=== PATIENT | male | born 1970 | race Caucasian/White ===

== ENCOUNTER 2017-07-22 16:49 | Inpatient (IN) | payer OTHER ==
[2017-07-22 18:45] VITALS: BMI 24.9
--- NOTE | 2017-07-22 20:25 | HP ---
CIWA Score - CIWA Score Nausea/Vomitin-No Nausea/No Vomiting Muscle Tremors: 4-Moderate,w/Arms Extend Anxiety: 4-Mod. Anxious/Guarded Agitation: 4-Moderately Restless Paroxysmal Sweats: 1-Minimal Palms Moist Orientation: 1-Uncertain about Date Tacttile Disturbances: 0-None Auditory Disturbances: 0-None Visual Disturbances: 0-None Headache: 3-Moderate CIWA-Ar Total Score: 17 Admission ROS S - HPI Chief Complaint: Alcohol withdrawal symptoms Allergies/Adverse Reactions: Allergies Allergy/AdvReac Type Severity Reaction Status Date / Time No Known Allergies Allergy Verified 07/22/17 19:53 History of Present Illness: 46 years old male with a long history of alcohol dependence is admitted to detox. Patient reports previous detox and 2 months of sobriety. Patient has past medical history of TIA, HTN, seizure and denies suicidal ideation at this time. Patient states, " I need help, I want take care of my drinking problem because of my and children." Exam Limitations: No Limitations - Ebola screening Have you traveled outside of the country in the last 21 days: No Have you had contact with anyone from an Ebola affected area: No Have you been sick,other than usual withdrawal symptoms: No Do you have a fever: No - Review of Systems Constitutional: Chills, Malaise, Night Sweats, Changes in sleep EENT: reports: No Symptoms Reported Respiratory: reports: No Symptoms reported GI: reports: Poor Appetite, Poor Fluid Intake, Abdominal cramping : reports: No Symptoms Reported Musculoskeletal: reports: Back Pain, Muscle Pain, Muscle Weakness Integumentary: reports: [place] Neuro: reports: Headache, Tingling, Tremors Endocrine: reports: [place] Hematology: reports: No Symptoms Reported Psychiatric: reports: Anxious, Depressed Other Systems: Reviewed and Negative Patient History - Patient Medical History Hx Anemia: No Hx Asthma: No Hx Chronic Obstructive Pulmonary Disease (COPD): No Hx Cancer: No Hx Cardiac Disorders: Yes (TIA) Hx Congestive Heart Failure: No Hx Hypertension: No Hx Hypercholesterolemia: No Hx Pacemaker: No HX Cerebrovascular Accident: No Hx Seizures: Yes (alcohol related 09/2016) Hx Dementia: No Hx Diabetes: No Hx Gastrointestinal Disorders: No Hx Liver Disease: No Hx Genitourinary Disorders: No Hx Sexually Transmitted Disorders: No Hx Renal Disease (ESRD): No Hx Thyroid Disease: No Hx Human Immunodeficiency Virus (HIV): No (Negative 2015) Hx Hepatitis C: No (Negative 2015) Hx Depression: Yes Hx Suicide Attempt: No (Denies suicidal ideation) Hx Bipolar Disorder: No Hx Schizophrenia: No - Patient Surgical History Past Surgical History: No - PPD History Previous Implant?: Yes Documented Results: Negative w/proof Implanted On Prior [facility] Admission?: Yes Date: 11/28/15 Results: 0 mm PPD to be Administered?: Yes - Reproductive History Patient is a Female of Child Bearing Age (11 -55 yrs old): No (MALE) - Smoking Cessation Smoking history: Never smoked Have you smoked in the past 12 months: No Hx Chewing Tobacco Use: No Initiated information on smoking cessation: No - Substance & Tx. History Hx Alcohol Use: Yes (BEER) Hx Substance Use: No Substance Use Type: Alcohol Hx Substance Use Treatment: Yes ([facility]) - Substances Abused Alcohol Route: Oral Frequency: Daily Amount used: 10 bottles of 12 oz beer Age of first use: 22 Date of Last Use: 07/22/17 Family Disease History - Family Disease History Family History: Denies Admission Physical Exam [facility] - Vital Signs Vital Signs: Vital Signs - 24 hr 07/22/17 18:40 Temperature 98.8 F Pulse Rate 90 Respiratory 18 Rate Blood Pressure 123/87 - Physical General Appearance: Yes: Moderate Distress, Alcohol on Breath, Tremorous, Irritable, Sweating, Anxious HEENTM: Yes: EOMI, TIM Respiratory: Yes: Lungs Clear, Normal Breath Sounds, No Respiratory Distress Neck: Yes: Supple Breast: Yes: Breast Exam Deferred Cardiology: Yes: Regular Rhythm, Regular Rate, S1, S2, Tachycardia Abdominal: Yes: Within Normal Limits Back: Yes: Within Normal Limits Musculoskeletal: Yes: Muscle Pain, Muscle weakness Extremities: Yes: Tremors Neurological: Yes: Alert, Normal Mood/Affect, Normal Response Integumentary: Yes: Dry Lymphatic: Yes: Within Normal Limits - Diagnostic (1) TIA (transient ischemic attack) Current Visit: Yes Status: Chronic (2) Alcohol dependence with uncomplicated withdrawal Current Visit: Yes Status: Chronic (3) Hypertension Current Visit: Yes Status: Chronic Qualifiers: Hypertension type: essential hypertension Qualified Code(s): I10 - Essential (primary) hypertension (4) Alcohol related seizure Current Visit: Yes Status: Chronic Cleared for Admission [facility] - Detox or Rehab [facility] Level of Care: Medically Managed Detox Regimen/Protocol: Librium [facility] Breath Alcohol Content Breath Alcohol Content: 0.240 Urine Drug Screen - Results Drug Screen Negative: Yes
[2017-07-22] MEDS ORDERED: hydrOXYzine PAMOATE 50 MG CAPSULE (FP) PO PRN (20:45)
[2017-07-22] MEDS ORDERED: MAGNESIUM CITRATE 300 ML BOTTLE PO PRN (20:45)
[2017-07-22] MEDS ORDERED: MAGNESIUM HYDROX 2400MG/30ML ORAL SUSPENSION 30 ML CUP PO PRN (20:45)
[2017-07-22] MEDS ORDERED: MENTHOL/PHENOL 1 EACH UD MM PRN (20:45)
[2017-07-22] MEDS ORDERED: P-EPHED 60MG/TRIPROLIDI 2.5MG TABLET PO PRN (20:45)
[2017-07-22] MEDS ORDERED: LOPERAMIDE HCL 2 MG CAPSULE PO PRN (20:45)
[2017-07-22] MEDS ORDERED: IBUPROFEN 400 MG TABLET (FP) PO PRN (20:45)
[2017-07-22] MEDS ORDERED: MAG HYDROX/AL HYDROX/SIMETH 30 ML UNIT-DOSE CUP PO PRN (20:45)
[2017-07-22] MEDS ORDERED: guaiFENesin/D-METHORPHAN HB 10 ML UNIT-DOSE CUPS PO PRN (20:45)
[2017-07-22] MEDS ORDERED: ACETAMINOPHEN 325 MG TABLET (FP) PO PRN (20:45)
[2017-07-22] MEDS ORDERED: chlordiazePOXIDE HCL 25 MG CAPSULE PO PRN (20:45)
[2017-07-22] MEDS: chlordiazePOXIDE HCL 25 MG CAPSULE PO SCH (22:32)
[2017-07-22] MEDS: THIAMINE HCL 100 MG TABLET (FP) PO SCH (22:32)
[2017-07-23 03:50] LABS: URINE APPEARANCE CLEAR; URINE BILIRUBIN NEGATIVE (NEGATIVE); URINE BLOOD NEGATIVE (NEGATIVE); URINE COLOR COLORLESS; URINE GLUCOSE (UA) NEGATIVE (NEGATIVE); URINE KETONE NEGATIVE (NEGATIVE); URINE NITRITE NEGATIVE (NEGATIVE); URINE PROTEIN NEGATIVE (NEGATIVE); URINE UROBILINOGEN NEGATIVE mg/dL (0.2-1.0)
[2017-07-23] MEDS: chlordiazePOXIDE HCL 25 MG CAPSULE PO SCH ×4 (05:26→22:08)
[2017-07-23 09:58] LABS: MCH 32.3 pg (25.7-33.7); MCHC 33.9 g/dl (32.0-35.9); MEAN CELL VOLUME 95.4 fl (80-96); MEAN PLT VOLUME 7.9 fl (7.5-11.1); PLATELET COUNT 198 K/MM3 (134-434); RDW 13.4 % (11.9-15.9)
[2017-07-23 10:04] LABS: URINE LEUK ESTERASE Negative (NEGATIVE)
--- NOTE | 2017-07-23 10:11 | EKG ---
Test Reason : Blood Pressure : / mmHG Vent. Rate : 073 BPM Atrial Rate : 073 BPM P-R Int : 164 ms QRS Dur : 114 ms QT Int : 374 ms P-R-T Axes : 064 056 040 degrees QTc Int : 412 ms NORMAL SINUS RHYTHM POSSIBLE LEFT ATRIAL ENLARGEMENT INCOMPLETE RIGHT BUNDLE BRANCH BLOCK WHEN COMPARED WITH ECG OF 25-NOV-2015 22:30, NO SIGNIFICANT CHANGE WAS FOUND Confirmed by FOSTER CAVAZOS MD ([id number]) on 07/23/2017 10:10:53 AM Referred By: Confirmed By:FOSTER CAVAZOS MD
[2017-07-23 10:27] LABS: ALBUMIN 3.8 g/dl (3.4-5.0); ALK PHOS 83 U/L (45-117); ANION GAP 8 (8-16); BILIRUBIN,TOTAL 1.1 mg/dL (0.2-1.0); CALCIUM 8.1 mg/dL (8.5-10.1); CO2 27 mmol/L (21-32); CREATININE 0.7 mg/dL (0.7-1.3); GLUCOSE,RANDOM 88 mg/dL (74-106); SGOT/AST 56 U/L (15-37); SGPT/ALT 33 U/L (12-78); TOT PROT 7.3 g/dl (6.4-8.2)
--- NOTE | 2017-07-23 10:31 | PN ---
S CIWA - CIWA Score Nausea/Vomitin-No Nausea/No Vomiting Muscle Tremors: 4-Moderate,w/Arms Extend Anxiety: 4-Mod. Anxious/Guarded Agitation: 3 Paroxysmal Sweats: 3 Orientation: 0-Oriented Tacttile Disturbances: 0-None Auditory Disturbances: 0-None Visual Disturbances: 0-None Headache: 0-None Present CIWA-Ar Total Score: 14 BHS Progress Note (SOAP) Subjective: Tremors,anxiety,restless,interrupted sleep,sweating. Objective: 07/23/17 10:29 Vital Signs - 8 hr 07/23/17 07/23/17 07/23/17 04:19 06:31 09:54 Temperature 97.9 F 97.5 F L Pulse Rate 84 78 100 H Respiratory 18 18 18 Rate Blood Pressure 135/75 134/91 Laboratory Tests 07/23/17 07/23/17 07/23/17 00:00 07:00 07:00 WBC 4.0 RBC 4.62 Hgb 14.9 Hct 44.1 MCV 95.4 MCH 32.3 MCHC 33.9 RDW 13.4 Plt Count 198 D MPV 7.9 Sodium 141 Potassium 3.7 Chloride 106 Carbon Dioxide 27 Anion Gap 8 BUN 8 D Creatinine 0.7 Creat Clearance w eGFR > 60 Random Glucose 88 Calcium 8.1 L Total Bilirubin 1.1 H D AST 56 H D ALT 33 D Alkaline Phosphatase 83 Total Protein 7.3 Albumin 3.8 Urine Color Colorless Urine Appearance Clear Urine pH 6.0 Ur Specific [place] 1.002 Urine Protein Negative Urine Glucose (UA) Negative Urine Ketones Negative Urine Blood Negative Urine Nitrite Negative Urine Bilirubin Negative Urine Urobilinogen Negative Ur Leukocyte Esterase Negative labs noted Assessment: 07/23/17 10:30 Withdrawal sx. Plan: Continue detox
[2017-07-23] MEDS: PRENATAL VITAMINS W/ FOLIC ACID TABLET (FP) PO SCH (10:43)
--- NOTE | 2017-07-23 13:26 | CONSULT ---
[facility] Psychiatric Consult - Data Date of interview: 07/22/17 Admission source: [facility] Identifying data: Pt. is a 46 year old male, employed, with 2 kids. Pt. admitted to for detox from alcohol dependence. Substance Abuse History: Alcohol- begun drinking in his 20's. Reports drinking heavily the last 2 years. Reports drinking approximately 6-10 beers daily. Last drink was 07/22/2017 Medical History: Seizures from withdrawals. Hypertension Psychiatric History: Denies. Physical/Sexual Abuse/Trauma History: Denies. Mental Status Exam - Mental Status Exam Alert and Oriented to: Time, Place, Person Cognitive Function: Good Patient Appearance: Well Groomed Mood: Depressed Affect: Mood Congruent Patient Behavior: Appropriate, Cooperative Speech Pattern: Clear Voice Loudness: Normal Thought Process: Goal Oriented Thought Disorder: Not Present Hallucinations: Denies Suicidal Ideation: Denies Homicidal Ideation: Denies Insight/Judgement: Fair Sleep: Fair Appetite: Poor Muscle strength/Tone: Normal Gait/Station: Normal Psychiatric Findings - Problem List ([place] 1, 2,3) (1) Alcohol dependence with uncomplicated withdrawal Current Visit: Yes Status: Chronic - Initial Treatment Plan Initial Treatment Plan: Psychoeducation provided. Chart reviewed. No psychotrophic medications needed at this time.
[2017-07-23] MEDS: THIAMINE HCL 100 MG TABLET (FP) PO SCH (22:09)
[2017-07-24] MEDS: chlordiazePOXIDE HCL 25 MG CAPSULE PO SCH (05:46)
[2017-07-24] MEDS: PRENATAL VITAMINS W/ FOLIC ACID TABLET (FP) PO SCH (10:33)
[2017-07-24] MEDS: chlordiazePOXIDE 5 MG CAPSULE PO SCH ×2 (10:56→17:11)
--- NOTE | 2017-07-24 13:29 | PN ---
[facility] CIWA - CIWA Score Nausea/Vomitin-No Nausea/No Vomiting Muscle Tremors: 3 Anxiety: 3 Agitation: 4-Moderately Restless Paroxysmal Sweats: 3 Orientation: 0-Oriented Tacttile Disturbances: 0-None Auditory Disturbances: 0-None Visual Disturbances: 0-None Headache: 0-None Present CIWA-Ar Total Score: 13 BHS Progress Note (SOAP) Subjective: Anxiety,tremors,sweating,interrupted sleep, restless Objective: 07/24/17 13:28 Vital Signs - 8 hr 07/24/17 07/24/17 06:00 10:00 Temperature 97.7 F 97.9 F Pulse Rate 70 83 Respiratory 18 18 Rate Blood Pressure 129/78 143/75 Laboratory Tests 07/22/17 07/23/17 07/23/17 07:00 00:00 07:00 WBC 4.0 RBC 4.62 Hgb 14.9 Hct 44.1 MCV 95.4 MCH 32.3 MCHC 33.9 RDW 13.4 Plt Count 198 D MPV 7.9 Sodium Potassium Chloride Carbon Dioxide Anion Gap BUN Creatinine Creat Clearance w eGFR Random Glucose Calcium Total Bilirubin AST ALT Alkaline Phosphatase Total Protein Albumin Urine Color Colorless Urine Appearance Clear Urine pH 6.0 Ur Specific [place] 1.002 Urine Protein Negative Urine Glucose (UA) Negative Urine Ketones Negative Urine Blood Negative Urine Nitrite Negative Urine Bilirubin Negative Urine Urobilinogen Negative Ur Leukocyte Esterase Negative RPR Titer Hepatitis C Antibody <0.1 07/23/17 07/23/17 07:00 07:00 WBC RBC Hgb Hct MCV MCH MCHC RDW Plt Count MPV Sodium 141 Potassium 3.7 Chloride 106 Carbon Dioxide 27 Anion Gap 8 BUN 8 D Creatinine 0.7 Creat Clearance w eGFR > 60 Random Glucose 88 Calcium 8.1 L Total Bilirubin 1.1 H D AST 56 H D ALT 33 D Alkaline Phosphatase 83 Total Protein 7.3 Albumin 3.8 Urine Color Urine Appearance Urine pH Ur Specific [place] Urine Protein Urine Glucose (UA) Urine Ketones Urine Blood Urine Nitrite Urine Bilirubin Urine Urobilinogen Ur Leukocyte Esterase RPR Titer Nonreactive Hepatitis C Antibody labs noted Assessment: 07/24/17 13:28 Withdrawal sx. Plan: Continue detox
[2017-07-24] MEDS: THIAMINE HCL 100 MG TABLET (FP) PO SCH (22:38)
[2017-07-24] MEDS ORDERED: chlordiazePOXIDE 5 MG CAPSULE PO SCH (23:00)
--- NOTE | 2017-07-25 09:34 | DS ---
[facility] Detox Discharge Summary Admission Date: 07/22/17 Discharge Date: 07/25/17 - History Present History: Alcohol Dependence Pertinent Past History: HTN, hx of TIA and alcohol induced seizure - Physical Exam Results Vital Signs: Vital Signs Temperature 97.9 F 07/25/17 06:06 Pulse Rate 65 07/25/17 06:06 Respiratory Rate 16 07/25/17 06:06 Blood Pressure 139/90 07/25/17 06:06 O2 Sat by Pulse Oximetry (%) Pertinent Admission Physical Exam Findings: Withdrawal sx Laboratory Last Values WBC 4.0 K/mm3 (4.0-10.0) 07/23/17 07:00 RBC 4.62 M/mm3 (4.00-5.60) 07/23/17 07:00 Hgb 14.9 GM/dL (11.7-16.9) 07/23/17 07:00 Hct 44.1 % (35.4-49) 07/23/17 07:00 MCV 95.4 fl (80-96) 07/23/17 07:00 MCH 32.3 pg (25.7-33.7) 07/23/17 07:00 MCHC 33.9 g/dl (32.0-35.9) 07/23/17 07:00 RDW 13.4 % (11.9-15.9) 07/23/17 07:00 Plt Count 198 K/MM3 (134-434) D 07/23/17 07:00 MPV 7.9 fl (7.5-11.1) 07/23/17 07:00 Sodium 141 mmol/L (136-145) 07/23/17 07:00 Potassium 3.7 mmol/L (3.5-5.1) 07/23/17 07:00 Chloride 106 mmol/L (98-107) 07/23/17 07:00 Carbon Dioxide 27 mmol/L (21-32) 07/23/17 07:00 Anion Gap 8 (8-16) 07/23/17 07:00 BUN 8 mg/dL (7-18) D 07/23/17 07:00 Creatinine 0.7 mg/dL (0.7-1.3) 07/23/17 07:00 Creat Clearance w eGFR > 60 (>60) 07/23/17 07:00 Random Glucose 88 mg/dL (74-106) 07/23/17 07:00 Calcium 8.1 mg/dL (8.5-10.1) L 07/23/17 07:00 Total Bilirubin 1.1 mg/dL (0.2-1.0) H D 07/23/17 07:00 AST 56 U/L (15-37) H D 07/23/17 07:00 ALT 33 U/L (12-78) D 07/23/17 07:00 Alkaline Phosphatase 83 U/L (45-117) 07/23/17 07:00 Total Protein 7.3 g/dl (6.4-8.2) 07/23/17 07:00 Albumin 3.8 g/dl (3.4-5.0) 07/23/17 07:00 Urine Color Colorless 07/23/17 00:00 Urine Appearance Clear 07/23/17 00:00 Urine pH 6.0 (5.0-8.0) 07/23/17 00:00 Ur Specific [place] 1.002 (1.001-1.035) 07/23/17 00:00 Urine Protein Negative (NEGATIVE) 07/23/17 00:00 Urine Glucose (UA) Negative (NEGATIVE) 07/23/17 00:00 Urine Ketones Negative (NEGATIVE) 07/23/17 00:00 Urine Blood Negative (NEGATIVE) 07/23/17 00:00 Urine Nitrite Negative (NEGATIVE) 07/23/17 00:00 Urine Bilirubin Negative (NEGATIVE) 07/23/17 00:00 Urine Urobilinogen Negative mg/dL (0.2-1.0) 07/23/17 00:00 Ur Leukocyte Esterase Negative (NEGATIVE) 07/23/17 00:00 RPR Titer Nonreactive (NONREACTIVE) 07/23/17 07:00 Hepatitis C Antibody <0.1 s/co ratio (0.0-0.9) 07/22/17 07:00 LAbs noted. - Treatment Hospital Course: Detox Protocol Followed, Detoxed Safely, Responded well, Discharged Condition Good Patient has Accepted a Rehab Referral to: IOP & AA meetings - Medication Discharge Medications: Ambulatory Orders NK [No Known Home Medication] 11/25/15 - Diagnosis (1) Alcohol dependence with uncomplicated withdrawal Current Visit: Yes Status: Chronic (2) Hypertension Current Visit: Yes Status: Chronic Qualifiers: Hypertension type: essential hypertension Qualified Code(s): I10 - Essential (primary) hypertension (3) TIA (transient ischemic attack) Current Visit: Yes Status: Chronic - AMA Did Patient Leave Against Medical Advice: No
[2017-07-25 09:46] VITALS: BP 142/95; PULSE 94; TEMP 98.2
[2017-07-25] MEDS ORDERED: chlordiazePOXIDE HCL 10 MG CAPSULE PO SCH ×2 (11:00→23:00)
== END 2017-07-25 09:11 | disposition home or self-care (01) | DRG 775 ==
LOC: YASAS 16:49 → Y6N 20:20
PROVIDERS: ADMIT Internal Medicine; ATTEND Internal Medicine
PROC: HZ2ZZZZ Detoxification Services for Substance Abuse Treatment (ICD-10-PCS; principal; 2017-07-22)
DX: F10.230 Alcohol dependence with withdrawal, uncomplicated (principal); F32.9 Major depressive disorder, single episode, unspecified; I10 Essential (primary) hypertension; Z86.73 Personal history of transient ischemic attack (TIA), and cerebral infarction without residual deficits; Z86.69 Personal history of other diseases of the nervous system and sense organs
CPT/HCPCS: 36415; 80053; 81003; 85027; 86593; 86803; 93005; 93010

== ENCOUNTER 2018-06-17 12:28 | Inpatient (IN) | payer MEDICARE ==
[2018-06-17 15:31] VITALS: BMI 26.9
--- NOTE | 2018-06-17 17:12 | HP ---
CIWA Score - CIWA Score Nausea/Vomitin-No Nausea/No Vomiting Muscle Tremors: None Anxiety: 0-No Anxiety, at Ease Agitation: 0-Normal Activity Paroxysmal Sweats: No Perspiration Orientation: 0-Oriented Tacttile Disturbances: 0-None Auditory Disturbances: 0-None Visual Disturbances: 0-None Headache: 0-None Present CIWA-Ar Total Score: 0 Admission ROS BHS - HPI Allergies/Adverse Reactions: Allergies Allergy/AdvReac Type Severity Reaction Status Date / Time No Known Allergies Allergy Verified 07/22/17 19:53 History of Present Illness: pt here requesting detox from etoh use , reports 10 beers/day , reports seizures if not drinking most recently 1 year ago went to [facility] , reports starts drinking around 7 am , 2 beers , then lunch and dinner 2 -3 beers , reports tremors if not drinking , latest use this morning , janneth 0.412 initially , currently 0.336 . Denies symptoms at this time " I feel good " , reports he wants to stop drinking and does not know how. tobacco - denies illicits -denies pmhx : denies pshx : denies psych :denies meds : denies legal : denies - Ebola screening Have you traveled outside of the country in the last 21 days: No Have you had contact with anyone from an Ebola affected area: No Have you been sick,other than usual withdrawal symptoms: No Do you have a fever: No - Review of Systems Constitutional: No Symptoms Reported EENT: reports: No Symptoms Reported Respiratory: reports: No Symptoms reported Cardiac: reports: No Symptoms Reported GI: reports: No Symptoms Reported : reports: No Symptoms Reported Musculoskeletal: reports: No Symptoms Reported Integumentary: reports: No Symptoms Reported Neuro: reports: See HPI, Seizure Endocrine: reports: No Symptoms Reported Hematology: reports: No Symptoms Reported Psychiatric: reports: No Sypmtoms Reported, Judgement Intact, Orientated x3 Other Systems: Reviewed and Negative Patient History - Patient Medical History Hx Anemia: No Hx Asthma: No Hx Chronic Obstructive Pulmonary Disease (COPD): No Hx Cancer: No Hx Cardiac Disorders: Yes (TIA) Hx Congestive Heart Failure: No Hx Hypertension: No Hx Hypercholesterolemia: No Hx Pacemaker: No HX Cerebrovascular Accident: No Hx Seizures: Yes (alcohol related 09/2016) Hx Dementia: No Hx Diabetes: No Hx Gastrointestinal Disorders: No Hx Liver Disease: No Hx Genitourinary Disorders: No Hx Sexually Transmitted Disorders: No Hx Renal Disease (ESRD): No Hx Thyroid Disease: No Hx Human Immunodeficiency Virus (HIV): No (Negative 2015) Hx Hepatitis C: No (Negative 2016) Hx Depression: Yes Hx Suicide Attempt: No (Denies suicidal ideation) Hx Bipolar Disorder: No Hx Schizophrenia: No - Patient Surgical History Past Surgical History: No - PPD History Date: 07/24/17 Results: 0 mm - Smoking Cessation Smoking history: Never smoked Have you smoked in the past 12 months: No Aproximately how many cigarettes per day: 2 Hx Chewing Tobacco Use: No Family Disease History - Family Disease History Family History: Denies Admission Physical Exam [facility] - Vital Signs Vital Signs: Vital Signs - 24 hr 06/17/18 15:29 Temperature 96 F L Pulse Rate 87 Respiratory 18 Rate Blood Pressure 130/92 - Physical General Appearance: Yes: Alcohol on Breath, Intoxicated HEENTM: Yes: EOMI, Hearing grossly Normal, Normocephalic, Normal Voice Respiratory: Yes: Chest Non-Tender, Lungs Clear, Normal Breath Sounds Neck: Yes: No masses,lesions,Nodules, Trachea in good position Breast: Yes: Breast Exam Deferred Cardiology: Yes: Regular Rhythm, Regular Rate, Tachycardia Abdominal: Yes: Normal Bowel Sounds, Non Tender Genitourinary: Yes: Within Normal Limits Back: Yes: Normal Inspection Musculoskeletal: Yes: full range of Motion, Other (staggering) Extremities: Yes: Normal Capillary Refill - Diagnostic (1) Alcohol abuse Current Visit: No Status: Acute (2) Alcohol intoxication Current Visit: No Status: Acute (3) Alcohol related seizure Current Visit: No Status: Chronic S Breath Alcohol Content Breath Alcohol Content: 0.412 Urine Drug Screen - Results Drug Screen Negative: Yes
[2018-06-17] MEDS ORDERED: MAGNESIUM HYDROX 2400MG/30ML ORAL SUSPENSION 30 ML CUP PO PRN (17:14)
[2018-06-17] MEDS ORDERED: guaiFENesin/D-METHORPHAN HB 10 ML UNIT-DOSE CUPS PO PRN (17:14)
[2018-06-17] MEDS ORDERED: P-EPHED 60MG/TRIPROLIDI 2.5MG TABLET PO PRN (17:14)
[2018-06-17] MEDS ORDERED: MAGNESIUM CITRATE 300 ML BOTTLE PO PRN (17:14)
[2018-06-17] MEDS ORDERED: ACETAMINOPHEN 325 MG TABLET (FP) PO PRN (17:14)
[2018-06-17] MEDS ORDERED: IBUPROFEN 400 MG TABLET (FP) PO PRN (17:14)
[2018-06-17] MEDS ORDERED: MAG HYDROX/AL HYDROX/SIMETH 30 ML UNIT-DOSE CUP PO PRN (17:14)
[2018-06-17] MEDS ORDERED: chlordiazePOXIDE HCL 25 MG CAPSULE PO PRN (17:14)
[2018-06-17] MEDS ORDERED: MENTHOL/PHENOL 1 EACH UD MM PRN (17:14)
[2018-06-17] MEDS ORDERED: MELATONIN 5 MG TABLETS PO PRN (22:00)
[2018-06-17] MEDS: THIAMINE HCL 100 MG TABLET (FP) PO SCH (22:19)
[2018-06-17] MEDS: chlordiazePOXIDE HCL 25 MG CAPSULE PO SCH (22:19)
[2018-06-18] MEDS: chlordiazePOXIDE HCL 25 MG CAPSULE PO SCH ×4 (05:18→22:08)
[2018-06-18] MEDS ORDERED: PRENATAL VITAMINS W/ FOLIC ACID TABLET (FP) PO SCH (10:00)
[2018-06-18 10:23] LABS: HEMATOCRIT 46.4 % (35.4-49); HEMOGLOBIN 15.7 GM/dL (11.7-16.9); MCH 33.3 pg (25.7-33.7); MCHC 33.8 g/dl (32.0-35.9); MEAN CELL VOLUME 98.5 fl (80-96); MEAN PLT VOLUME 8.5 fl (7.5-11.1); PLATELET COUNT 172 K/MM3 (134-434); RBC 4.72 M/mm3 (4.00-5.60); RDW 13.1 % (11.9-15.9); WHITE BLOOD COUNT 5.5 K/mm3 (4.0-10.0)
[2018-06-18 11:00] LABS: ALBUMIN 4.5 g/dl (3.4-5.0); ALK PHOS 89 U/L (45-117); ANION GAP 12 MMOL/L (8-16); BILIRUBIN,TOTAL 1.8 mg/dL (0.2-1); BLOOD UREA NITROGEN 5 mg/dL (7-18); CALCIUM 8.8 mg/dL (8.5-10.1); CHLORIDE 98 mmol/L (98-107); CO2 27 mmol/L (21-32); CREATININE 0.7 mg/dL (0.55-1.3); GLUCOSE,RANDOM 93 mg/dL (74-106); POTASSIUM 4.1 mmol/L (3.5-5.1); SGOT/AST 160 U/L (15-37); SGPT/ALT 65 U/L (13-61); SODIUM 138 mmol/L (136-145); TOT PROT 8.1 g/dl (6.4-8.2)
[2018-06-18 13:01] LABS: URINE APPEARANCE CLEAR; URINE BILIRUBIN NEGATIVE (<2.0 mg/dL); URINE COLOR COLORLESS; URINE GLUCOSE (UA) NEGATIVE (NEGATIVE); URINE KETONE NEGATIVE (NEGATIVE); URINE LEUK ESTERASE NEGATIVE (NEGATIVE); URINE NITRITE NEGATIVE (NEGATIVE); URINE PROTEIN NEGATIVE (NEGATIVE); URINE UROBILINOGEN NEGATIVE mg/dL (0.2-1.0)
[2018-06-18] MEDS ORDERED: chlordiazePOXIDE HCL 10 MG CAPSULE PO PRN (13:56)
--- NOTE | 2018-06-18 14:06 | PN ---
S CIWA - CIWA Score Nausea/Vomitin-Mild Nausea/No Vomiting Muscle Tremors: 4-Moderate,w/Arms Extend Anxiety: 1-Mildly Anxious Agitation: 1-Slight > Activity Paroxysmal Sweats: No Perspiration Orientation: 0-Oriented Tacttile Disturbances: 0-None Auditory Disturbances: 0-None Visual Disturbances: 0-None Headache: 0-None Present CIWA-Ar Total Score: 7 BHS Progress Note (SOAP) Subjective: States starting to feel better. Still w/ some nausea and tremors. Wants medication adjusted so that will be able to leave on Wednesday. Objective: A&O x 3. See CIWA . Vital Signs 06/18/18 06/18/18 06/18/18 06:30 07:00 07:15 Temperature 98.1 F Pulse Rate 68 67 69 Respiratory 18 Rate Blood Pressure 111/59 L 06/18/18 06/18/18 06/18/18 07:30 08:00 09:27 Temperature 98.1 F Pulse Rate 94 H 93 H 93 H Respiratory 16 Rate Blood Pressure 145/85 06/18/18 14:01 Temperature 98.1 F Pulse Rate 79 Respiratory 16 Rate Blood Pressure 149/76 Laboratory Tests 06/18/18 06/18/18 06/18/18 08:00 08:00 08:15 WBC 5.5 RBC 4.72 Hgb 15.7 Hct 46.4 MCV 98.5 H MCH 33.3 MCHC 33.8 RDW 13.1 Plt Count 172 MPV 8.5 Sodium 138 Potassium 4.1 Chloride 98 Carbon Dioxide 27 Anion Gap 12 BUN 5 L Creatinine 0.7 Creat Clearance w eGFR > 60 Random Glucose 93 Calcium 8.8 Total Bilirubin 1.8 H AST 160 H ALT 65 H Alkaline Phosphatase 89 Total Protein 8.1 Albumin 4.5 Urine Color Urine Appearance Urine pH Ur Specific [place] Urine Protein Urine Glucose (UA) Urine Ketones Urine Blood Urine Nitrite Urine Bilirubin Urine Urobilinogen Ur Leukocyte Esterase RPR Titer Nonreactive 06/18/18 09:30 WBC RBC Hgb Hct MCV MCH MCHC RDW Plt Count MPV Sodium Potassium Chloride Carbon Dioxide Anion Gap BUN Creatinine Creat Clearance w eGFR Random Glucose Calcium Total Bilirubin AST ALT Alkaline Phosphatase Total Protein Albumin Urine Color Colorless Urine Appearance Clear Urine pH 6.0 Ur Specific [place] 1.003 L Urine Protein Negative Urine Glucose (UA) Negative Urine Ketones Negative Urine Blood Negative Urine Nitrite Negative Urine Bilirubin Negative Urine Urobilinogen Negative Ur Leukocyte Esterase Negative RPR Titer Labs reviewed. Assessment: Alcohol withdrawal symptoms. Plan: Adjust Librium to facilitate discharge on Wednesday and re-evaluate dosage for increased withdrawal symptoms. Continue detox.
[2018-06-18] MEDS: THIAMINE HCL 100 MG TABLET (FP) PO SCH (22:08)
[2018-06-19] MEDS: chlordiazePOXIDE HCL 25 MG CAPSULE PO SCH (05:38)
[2018-06-19 06:50] VITALS: TEMP 97.9
--- NOTE | 2018-06-19 09:41 | DS ---
[facility] Detox Discharge Summary Admission Date: 06/17/18 Discharge Date: 06/19/18 - History Present History: Alcohol Dependence Additional Comments: 47 years old male admitted on 06/17/18 for alcohol withdrawal sx wants to leave the detox unit due to working location that living in [place] and currently working at local [employer] alert oriented x 3 no acute distress denies suicidal denies homocidal no self destructive behavior stated taht showered and had good breakfast and ready return to work agrees to follow up with [facility] Pertinent Past History: discuss alcohol related complications such as liver enzyme elevation patient agrees fo follow up with [facility] on bp elevation and risks of bp elevation patiet denies taking medication at home no prescription medication no herb medication denies over the counter medication - Physical Exam Results Vital Signs: Vital Signs Temperature 97.9 F 06/19/18 06:49 Pulse Rate 79 06/19/18 06:49 Respiratory Rate 16 06/19/18 06:49 Blood Pressure 126/79 06/19/18 06:49 O2 Sat by Pulse Oximetry (%) Pertinent Admission Physical Exam Findings: alcohol withdrawal sx Vital Signs Temperature 97.9 F 06/19/18 09:48 Pulse Rate 92 H 06/19/18 09:48 Respiratory Rate 18 06/19/18 09:48 Blood Pressure 149/96 06/19/18 09:48 O2 Sat by Pulse Oximetry (%) Laboratory Last Values WBC 5.5 K/mm3 (4.0-10.0) 06/18/18 08:15 RBC 4.72 M/mm3 (4.00-5.60) 06/18/18 08:15 Hgb 15.7 GM/dL (11.7-16.9) 06/18/18 08:15 Hct 46.4 % (35.4-49) 06/18/18 08:15 MCV 98.5 fl (80-96) H 06/18/18 08:15 MCH 33.3 pg (25.7-33.7) 06/18/18 08:15 MCHC 33.8 g/dl (32.0-35.9) 06/18/18 08:15 RDW 13.1 % (11.9-15.9) 06/18/18 08:15 Plt Count 172 K/MM3 (134-434) 06/18/18 08:15 MPV 8.5 fl (7.5-11.1) 06/18/18 08:15 Sodium 138 mmol/L (136-145) 06/18/18 08:00 Potassium 4.1 mmol/L (3.5-5.1) 06/18/18 08:00 Chloride 98 mmol/L (98-107) 06/18/18 08:00 Carbon Dioxide 27 mmol/L (21-32) 06/18/18 08:00 Anion Gap 12 MMOL/L (8-16) 06/18/18 08:00 BUN 5 mg/dL (7-18) L 06/18/18 08:00 Creatinine 0.7 mg/dL (0.55-1.3) 06/18/18 08:00 Creat Clearance w eGFR > 60 (>60) 06/18/18 08:00 Random Glucose 93 mg/dL (74-106) 06/18/18 08:00 Calcium 8.8 mg/dL (8.5-10.1) 06/18/18 08:00 Total Bilirubin 1.8 mg/dL (0.2-1) H 06/18/18 08:00 AST 160 U/L (15-37) H 06/18/18 08:00 ALT 65 U/L (13-61) H 06/18/18 08:00 Alkaline Phosphatase 89 U/L (45-117) 06/18/18 08:00 Total Protein 8.1 g/dl (6.4-8.2) 06/18/18 08:00 Albumin 4.5 g/dl (3.4-5.0) 06/18/18 08:00 Urine Color Colorless 06/18/18 09:30 Urine Appearance Clear 06/18/18 09:30 Urine pH 6.0 (5.0-8.0) 06/18/18 09:30 Ur Specific [place] 1.003 (1.010-1.035) L 06/18/18 09:30 Urine Protein Negative (NEGATIVE) 06/18/18 09:30 Urine Glucose (UA) Negative (NEGATIVE) 06/18/18 09:30 Urine Ketones Negative (NEGATIVE) 06/18/18 09:30 Urine Blood Negative (NEGATIVE) 06/18/18 09:30 Urine Nitrite Negative (NEGATIVE) 06/18/18 09:30 Urine Bilirubin Negative (<2.0 mg/dL) 06/18/18 09:30 Urine Urobilinogen Negative mg/dL (0.2-1.0) 06/18/18 09:30 Ur Leukocyte Esterase Negative (NEGATIVE) 06/18/18 09:30 RPR Titer Nonreactive (NONREACTIVE) 06/18/18 08:00 lab noted patient [facility] mental and addiction issues - Treatment Hospital Course: Detox Protocol Followed, Responded well Patient has Accepted a Rehab Referral to: [facility] - Medication Discharge Medications: Ambulatory Orders NK [No Known Home Medication] 11/25/15 - Diagnosis (1) Alcohol dependence with uncomplicated withdrawal Status: Acute (2) Hypertension Status: Chronic Qualifiers: Hypertension type: essential hypertension Qualified Code(s): I10 - Essential (primary) hypertension - AMA Did Patient Leave Against Medical Advice: Yes
[2018-06-19 09:49] VITALS: BP 149/96; PULSE 92
[2018-06-19] MEDS ORDERED: chlordiazePOXIDE 5 MG CAPSULE PO SCH (23:00)
[2018-06-20] MEDS ORDERED: chlordiazePOXIDE HCL 10 MG CAPSULE PO SCH (23:00)
== END 2018-06-19 09:46 | disposition left against medical advice (07) | DRG 770 ==
LOC: YASAS 12:28 → Y6N 18:16
PROC: HZ2ZZZZ Detoxification Services for Substance Abuse Treatment (ICD-10-PCS; principal; 2018-06-17)
DX: F10.230 Alcohol dependence with withdrawal, uncomplicated (principal); I10 Essential (primary) hypertension; Z86.73 Personal history of transient ischemic attack (TIA), and cerebral infarction without residual deficits; Z86.69 Personal history of other diseases of the nervous system and sense organs
CPT/HCPCS: 36415; 80053; 81003; 85027; 86593

== ENCOUNTER 2023-02-02 14:21 | Inpatient (IN) | payer OTHER ==
[2023-02-02 14:54] VITALS: BMI 27.4
[2023-02-02] MEDS ORDERED: DICYCLOMINE HCL 10 MG CAPSULE PO PRN (17:59)
[2023-02-02] MEDS ORDERED: MAGNESIUM HYDROX 2400MG/30ML ORAL SUSPENSION 30 ML CUP PO PRN (17:59)
[2023-02-02] MEDS ORDERED: POLYETHYLENE GLYCOL (HEALTHYLAX) 3350 17 GM PACKET PO PRN (17:59)
[2023-02-02] MEDS ORDERED: P-EPHED 60MG/TRIPROLIDI 2.5MG TABLET PO PRN (17:59)
[2023-02-02] MEDS ORDERED: IBUPROFEN 600 MG TABLET (FP) PO PRN (17:59)
[2023-02-02] MEDS ORDERED: hydrOXYzine PAMOATE 25 MG CAPSULE (FP) PO PRN (17:59)
[2023-02-02] MEDS ORDERED: BENZONATATE 200 MG CAPSULE PO PRN (17:59)
[2023-02-02] MEDS ORDERED: BENZOCAINE/MENTHOL (CHLORASEPTIC ) LOZENGE MM PRN (17:59)
[2023-02-02] MEDS ORDERED: guaiFENesin 600 MG TABLET.ER (FP) PO PRN (17:59)
[2023-02-02] MEDS ORDERED: IBUPROFEN 400 MG TABLET (FP) PO PRN (17:59)
[2023-02-02] MEDS ORDERED: MAG HYDROX/AL HYDROX/SIMETH 30 ML UNIT-DOSE CUP PO PRN (17:59)
[2023-02-02] MEDS ORDERED: ONDANSETRON *ODT* 4 MG TABLET SL PRN (17:59)
[2023-02-02] MEDS ORDERED: BISMUTH SUBSALICYLATE 524 MG/30 ML PO PRN (17:59)
[2023-02-02] MEDS ORDERED: ACETAMINOPHEN 325 MG TABLET (FP) PO PRN (17:59)
[2023-02-02] MEDS ORDERED: LOPERAMIDE HCL 2 MG CAPSULE PO PRN (17:59)
[2023-02-02] MEDS ORDERED: diazePAM 5 MG TABLET PO PRN (18:01)
[2023-02-02] MEDS: diazePAM 5 MG TABLET PO SCH (22:25)
[2023-02-02] MEDS: MELATONIN 5 MG TABLETS PO PRN (22:26)
[2023-02-02] MEDS: THIAMINE HCL 100 MG TABLET (FP) PO SCH (22:26)
[2023-02-03] MEDS: diazePAM 5 MG TABLET PO SCH ×4 (05:39→22:10)
[2023-02-03] MEDS: PRENATAL VITAMINS W/ FOLIC ACID TABLET (FP) PO SCH (10:20)
[2023-02-03 11:22] LABS: HEMATOCRIT 44.1 % (35.4-49); HEMOGLOBIN 15.2 GM/dL (11.7-16.9); MCH 32.2 pg (25.7-33.7); MCHC 34.4 g/dl (32.0-35.9); MEAN CELL VOLUME 93.7 fl (80-96); MEAN PLT VOLUME 8.2 fl (7.5-11.1); PLATELET COUNT 256 10^3/uL (134-434); RBC 4.71 M/mm3 (4.00-5.60); WHITE BLOOD COUNT 8.4 K/mm3 (4.0-10.0)
[2023-02-03 11:28] LABS: POTASSIUM 3.9 mmol/L (3.5-5.1)
[2023-02-03 11:32] LABS: ALBUMIN 3.8 g/dl (3.4-5.0); CALCIUM 9.2 mg/dL (8.5-10.1)
[2023-02-03 11:33] LABS: BLOOD UREA NITROGEN 6.5 mg/dL (7-18)
[2023-02-03 11:35] LABS: CREATININE 0.8 mg/dL (0.55-1.3)
[2023-02-03 11:37] LABS: BILIRUBIN,TOTAL 2.2 mg/dL (0.2-1); TOT PROT 7.1 g/dl (6.4-8.2)
[2023-02-03] MEDS: MELATONIN 5 MG TABLETS PO PRN (22:08)
[2023-02-03] MEDS: THIAMINE HCL 100 MG TABLET (FP) PO SCH (22:09)
[2023-02-04] MEDS: diazePAM 5 MG TABLET PO SCH ×3 (05:39→22:15)
[2023-02-04] MEDS: PRENATAL VITAMINS W/ FOLIC ACID TABLET (FP) PO SCH (10:10)
[2023-02-04 21:42] VITALS: PULSE 88
[2023-02-04] MEDS: THIAMINE HCL 100 MG TABLET (FP) PO SCH (22:15)
[2023-02-04] MEDS: MELATONIN 5 MG TABLETS PO PRN (22:15)
[2023-02-05] MEDS ORDERED: diazePAM 5 MG TABLET PO SCH (06:00)
[2023-02-05 06:29] VITALS: BP 139/90; RESP 16; TEMP 97.3
[2023-02-06] MEDS ORDERED: diazePAM 5 MG TABLET PO ONE (06:00)
== END 2023-02-05 06:55 | disposition home or self-care (01) | DRG 775 ==
LOC: YASAS 14:21 → Y3N 18:19
PROVIDERS: ADMIT Allergy & Immunology; ATTEND Surgery
PROC: HZ2ZZZZ Detoxification Services for Substance Abuse Treatment (ICD-10-PCS; principal; 2023-02-02)
DX: F10.230 Alcohol dependence with withdrawal, uncomplicated (principal); F10.220 Alcohol dependence with intoxication, uncomplicated; Z28.310 Unvaccinated for COVID-19; Z28.9 Immunization not carried out for unspecified reason
CPT/HCPCS: 36415; 80053; 85027; 86780; 87635